=== PATIENT | female | born 1955 ===

== ENCOUNTER 2021-06-17 05:30 | Day surgery (SDC) | payer OTHER ==
[2021-06-17] MEDS ORDERED: MORGIDOX100 MG PO (08:23)
[2021-06-17] MEDS ORDERED: NAPR500T14 PO (08:23)
== END 2021-06-17 12:10 | disposition home or self-care (01) ==
LOC: CIR.AMB 05:30
PROVIDERS: ATTEND Obstetrics & Gynecology
DX: N84.0 Polyp of corpus uteri (principal); D25.0 Submucous leiomyoma of uterus; Z20.822 Contact with and (suspected) exposure to COVID-19